=== PATIENT | male | born 1945 | race Caucasian/White ===

== ENCOUNTER 2019-02-15 14:47 | Inpatient (IN) | payer MEDICARE ==
[~2019-02-15] VITALS: Ht 175.3 cm; Wt 77.6 kg
[2019-02-15] MEDS ORDERED: VITAMIN D22000 UNIT PO (14:56)
[2019-02-15] MEDS ORDERED: LEVOTHYROXINE125 MCG ORAL (14:56)
[2019-02-15] MEDS ORDERED: AMLODIPINE BESY10 MG ORAL (14:56)
[2019-02-15 15:00] VITALS: BP 156/69
--- NOTE | 2019-02-15 15:00 | NUR ---
ED Nurse Note: Patient walked in to ER from home with sister due to BLE edema and urinary retention. pt aao x4 and ambulatory but impaired. skin clean and intact but pale. calm and cooperative. BLE pitting edema +4 noted. pt reported that he got a "water pill" prescription but he did not get a chance to go to pharmacy so he did not take it for a couple of month. 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
--- NOTE | 2019-02-15 15:00 | Emergency Room Report ---
History of Present Illness General Chief Complaint: Abnormal Labs Source: Patient, PMD Present Illness HPI Patient presents with difficulty urinating. He was sent by his private physician because he had a jump in his serum creatinine and also has edema. He feels fullness in his lower abdomen. Is uncertain how long this is progressed. He is able to produce small quantities of urine. The edema has been developing over several months. It gets better laying down, but he has trouble sleeping. He did not fill a prescription for a water pill. Apparently labs were performed yesterday and his creatinine bumped up to 4. His BNP was normal. Allergies: Coded Allergies: No Known Allergies (Unverified , 02/15/19) Patient History Past Medical History: see triage record Social History: Denies: smoking, alcohol use, drug use Social History Narrative lives with sister. 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 Reviewed Nursing Documentation: PMH: Agreed; PSxH: Agreed Review of Systems All Other Systems: negative except mentioned in HPI Physical Exam Vital Signs Date Time Temp Pulse Resp B/P (MAP) Pulse Ox O2 Delivery O2 Flow Rate FiO2 02/15/19 14:51 97.9 104 18 139/75 (96) 98 Room Air Sp02 EP Interpretation: reviewed, normal General Appearance: well appearing, no apparent distress, GCS 15 Head: normocephalic Eyes: bilateral eye normal inspection, bilateral eye PERRL ENT: moist mucus membranes Neck: supple Respiratory: lungs clear, normal breath sounds Cardiovascular #1: regular rate, rhythm, edema - 2-3+ pitting bilateral lower extremities Cardiovascular #2: 2+ radial (R) Gastrointestinal: non tender, soft, mass - Large bladder Genitourinary: no CVA tenderness Musculoskeletal: back normal, gait/station normal, normal range of motion Neurologic: alert, oriented x3, grossly normal Psychiatric: mood/affect normal Skin: normal inspection, warm/dry Medical Decision Making Diagnostic Impression: Primary Impression: Acute renal failure Qualified Codes: N17.9 - Acute kidney failure, unspecified Additional Impressions: Urinary retention Elevated lipase ER Course The patient presents with elevated creatinine edema and urinary retention. Differential includes benign prostatic hypertrophy, prostate cancer, medication interaction, right heart failure, urinary tract infection amongst others. The patient will be evaluated with labs, EKG chest x-ray abdomen film and renal ultrasound. Michelle catheter will be passed. Initial urine output = 1300 ml. EKG without injury. Chest x-ray unremarkable. Labs with acute renal failure. Lipase elevated. Fractional excretion of sodium less than 1%. Ultrasound with bilateral hydronephrosis. This was performed after Michelle was placed and the bladder was empty at that time. Patient pain improved. Admitted to the hospital for continued observation and evaluation of renal failure. Laboratory Tests Test 02/15/19 15:00 White Blood Count 11.0 K/UL (4.8-10.8) H Red Blood Count 3.93 M/UL (4.70-6.10) L Hemoglobin 10.2 G/DL (14.2-18.0) L Hematocrit 31.6 % (42.0-52.0) L Mean Corpuscular Volume 81 FL (80-99) Mean Corpuscular Hemoglobin 26.0 PG (27.0-31.0) L Mean Corpuscular Hemoglobin Concent 32.3 G/DL (32.0-36.0) Red Cell Distribution Width 11.5 % (11.6-14.8) L Platelet Count 421 K/UL (150-450) Mean Platelet Volume 6.0 FL (6.5-10.1) L Neutrophils (%) (Auto) 84.0 % (45.0-75.0) H Lymphocytes (%) (Auto) 8.3 % (20.0-45.0) L Monocytes (%) (Auto) 6.8 % (1.0-10.0) Eosinophils (%) (Auto) 0.0 % (0.0-3.0) Basophils (%) (Auto) 0.8 % (0.0-2.0) Prothrombin Time 10.7 SEC (9.30-11.50) Prothrombin Time INR 1.0 (0.9-1.1) PTT 31 SEC (23-33) Urine Color Pale yellow Urine Appearance Clear Urine pH 5 (4.5-8.0) Urine Specific [place] 1.010 (1.005-1.035) Urine Protein Negative (NEGATIVE) Urine Glucose (UA) Negative (NEGATIVE) Urine Ketones Negative (NEGATIVE) Urine Blood Negative (NEGATIVE) Urine Nitrite Negative (NEGATIVE) Urine Bilirubin Negative (NEGATIVE) Urine Urobilinogen Normal MG/DL (0.0-1.0) Urine Leukocyte Esterase Negative (NEGATIVE) Urine Random Sodium < 20 mmol/L (20-110) L Urine Creatinine 92.1 MG/DL (30.0-125.0) Sodium Level 133 MMOL/L (136-145) L Potassium Level 4.9 MMOL/L (3.5-5.1) Chloride Level 101 MMOL/L (98-107) Carbon Dioxide Level 19 MMOL/L (21-32) L Anion Gap 13 mmol/L (5-15) Blood Urea Nitrogen 81 mg/dL (7-18) H Creatinine 4.7 MG/DL (0.55-1.30) H Estimate Glomerular Filtration Rate mL/min (>60) Glucose Level 125 MG/DL (74-106) H Calcium Level 9.0 MG/DL (8.5-10.1) Total Bilirubin 0.3 MG/DL (0.2-1.0) Aspartate Amino Transferase (AST) 15 U/L (15-37) Alanine Aminotransferase (ALT) 20 U/L (12-78) Alkaline Phosphatase 76 U/L (46-116) Total Creatine Kinase 124 U/L (26-308) Troponin I 0.000 ng/mL (0.000-0.056) Total Protein 7.9 G/DL (6.4-8.2) Albumin 3.5 G/DL (3.4-5.0) Globulin 4.4 g/dL Albumin/Globulin Ratio 0.8 (1.0-2.7) L Lipase 1231 U/L (73-393) H EKG Diagnostic Results Rate: tachycardiac Rhythm: NSR ST Segments: no acute changes Rhythm Strip Diag. Results EP Interpretation: yes Rhythm: no PVC's, no ectopy, other - ST Chest X-Ray Diagnostic Results Chest X-Ray Diagnostic Results : Chest X-Ray Ordered: Yes # of Views/Limited/Complete: 1 View Indication: Other EP Interpretation: Yes Interpretation: no consolidation, no effusion, no pneumothorax Impression: No acute disease Electronically Signed by: Electronically signed by Adán Iraheta MD CT/MRI/US Diagnostic Results CT/MRI/US Diagnostic Results : Imaging Test Ordered: Renal ultrasound Impression Bilateral hydronephrosis Status: improved Disposition: ADMITTED INPATIENT Condition: Serious Adán Iraheta MD Feb 15, 2019 15:00
--- NOTE | 2019-02-15 15:13 | NUR ---
ED Nurse Note: Collected patient's own medication (# [id number]) and placed in locked box.
[2019-02-15] MEDS ORDERED: Lidocaine HCl 2% Jelly 6ml Tube TOPIC ONE (15:15)
[2019-02-15 15:26] LABS: APPEARANCE,URINE CLEAR; BILIRUBIN, URINE NEGATIVE (NEGATIVE); COLOR,URINE PALE YELLOW; GLUCOSE, URINE (UA) NEGATIVE (NEGATIVE); KETONES,URINE NEGATIVE (NEGATIVE); LEUKOCYTE ESTERASE ,URINE NEGATIVE (NEGATIVE); NITRITE,URINE NEGATIVE (NEGATIVE); PH,URINE 5 (4.5-8.0); PROTEIN,URINE NEGATIVE (NEGATIVE); UROBILINOGEN,URINE NORMAL MG/DL (0.0-1.0)
[2019-02-15 15:29] LABS: ANION GAP 13 mmol/L (5-15); BASOPHILS % (AUTO) 0.8 % (0.0-2.0); BLOOD UREA NITROGEN 81 mg/dL (7-18); CARBON DIOXIDE 19 MMOL/L (21-32); CHLORIDE 101 MMOL/L (98-107); CREATININE 4.7 MG/DL (0.55-1.30); HEMATOCRIT 31.6 % (42.0-52.0); HEMOGLOBIN 10.2 G/DL (14.2-18.0); LYMPHOCYTES % (AUTO) 8.3 % (20.0-45.0); MEAN CORPUSCULAR VOLUME 81 FL (80-99); MONOCYTES % (AUTO) 6.8 % (1.0-10.0); PLATELET COUNT 421 K/UL (150-450); POTASSIUM 4.9 MMOL/L (3.5-5.1); RED BLOOD COUNT 3.93 M/UL (4.70-6.10); RED CELL DISTRIBUTION WIDTH 11.5 % (11.6-14.8); SODIUM 133 MMOL/L (136-145)
--- NOTE | 2019-02-15 15:30 | NUR ---
ED Nurse Note: 2300cc of urine emptyed from F/C bag.
[2019-02-15 15:33] LABS: ALANINE AMINOTRANSFERASE 20 U/L (12-78); ALBUMIN 3.5 G/DL (3.4-5.0); ALBUMIN/GLOBULIN RATIO 0.8 (1.0-2.7); ALKALINE PHOSPHATASE 76 U/L (46-116); ASPARTATE AMINO TRANSFERASE 15 U/L (15-37); BILIRUBIN,TOTAL 0.3 MG/DL (0.2-1.0); CREATINE KINASE 124 U/L (26-308)
--- NOTE | 2019-02-15 15:37 | Diagnostic Imaging Report ---
Indication: Chest pain Comparison: None A single view chest radiograph was obtained. Findings: No definite infiltrate or pulmonary vascular congestion identified. The heart is enlarged. The aorta is mildly enlarged consistent with atherosclerotic vascular disease. The bones are osteopenic. Impression: No acute disease
--- NOTE | 2019-02-15 16:00 | NUR ---
ED Nurse Note: Patient's own medications given to the sister per pt and sister's request.
--- NOTE | 2019-02-15 16:08 | Diagnostic Imaging Report ---
Indication:Elevated Bun and Creatinine. Technique: Grayscale and duplex Doppler imaging of the kidneys performed. Comparison: None Findings: Moderate hydronephrosis demonstrated bilaterally. Right kidney length is 11.3 cm and left kidney length 11 cm. Michelle catheter noted in the bladder which is nondistended. IVC is patent. IMPRESSION: Moderate bilateral hydronephrosis. Michelle catheter in good position
--- NOTE | 2019-02-15 16:30 | NUR ---
ED Nurse Note: report given to TYE Lay.
--- NOTE | 2019-02-15 16:32 | NUR ---
ED Nurse Note: Pt left unit with 1 RN in stable condition.
--- NOTE | 2019-02-15 16:40 | NUR ---
NURSE NOTES: Patient came to unit by art in stable condition. Alert and oriented x4. No complain of pain or distress at this time. BLE pitting edema +4. IV dressing intact and dry. Belonging given to family member. Bed lowest position. Call light within reach. Will continue to monitor.
--- NOTE | 2019-02-15 19:30 | NUR ---
HAND-OFF: Report given to Khalif GAMBLE. Patient in stable condition. Addendum: 02/15/19 at 1950 by YOBANI JOHN RN NURSE NOTES: Noted light pink color of urine. No complain of pain or discomfort. Notified and no new order at this time. Will continue to monitor.
--- NOTE | 2019-02-15 19:45 | NUR ---
NURSE NOTES: Received report from TYE Lay and rounds made. Pt in bed, AOX4, denies any pain or discomfort, no distress noted. tolentino to gravity with pinkish color output, no clots noted. TYE Lay will notify Dr. Giron. IV patent and intact, IV fluid infusing as ordered. Bed in lowest position and locked, side railsup x 2, call light within reach. Will continue to monitor.
[2019-02-15 20:00] VITALS: BP 125/67
--- NOTE | 2019-02-16 03:30 | History and Physical Report ---
DATE OF ADMISSION: 02/15/2019 REASON FOR ADMISSION: Acute renal failure, urinary retention, and possible pancreatitis. HISTORY: This is a 73-year-old male, seen in my office yesterday with worsening lower extremity edema and noted worsening difficulty with urinary output. The patient is noted to have acute renal failure and was asked to come to the emergency room and now admitted. The patient had a Michelle catheter placed with significant amount of urinary retention at 1500 mL. The patient is also noted to have lower extremity edema. Denies any significant abdominal pain although his lipase is elevated. PAST MEDICAL HISTORY: Notable for hypertension, prior history of lower extremity edema, which has resolved, cognitive dysfunction, hypothyroidism, reflux disease, and hypertension. MEDICATIONS: Reviewed. ALLERGIES: Reviewed. SOCIAL HISTORY: The patient is a nonsmoker and nondrinker. Disabled. REVIEW OF SYSTEMS: All 10 points reviewed and otherwise negative. PHYSICAL EXAMINATION: GENERAL: A well-developed male, comfortable at present. VITAL SIGNS: Blood pressure 138/84, heart rate 93, respirations 18, saturations 98%, and temperature 97.9. HEENT: Negative. Extraocular movements are grossly intact. NECK: Supple. LUNGS: Fairly clear and symmetric. No rhonchi or wheezes. CARDIAC: S1 and S2. Regular rate and rhythm without murmurs, rubs, or gallops. ABDOMEN: Soft, nontender, and nondistended. EXTREMITIES: No cyanosis or clubbing. There is no erythema. NEUROLOGIC: Grossly nonfocal. LABORATORY DATA: BUN 81, creatinine 4.7, and blood sugar 125. White cell count 9, hemoglobin 10, and platelets of 421,000. INR within normal limits. Renal ultrasound with significant amount of necrosis. IMPRESSION: 1. Obstructive uropathy with acute renal failure. 2. Bilateral hydronephrosis. 3. Distended bladder. 4. Hypertension. 5. Vitamin D deficiency. RECOMMENDATIONS: 1. Supportive care. 2. Michelle catheter placement. 3. IV hydration. 4. Renal and evaluation. 5. Chronic catheter placement. 6. We will follow clinically and recommend GI for consideration for pancreatitis. 7. We will obtain a GI evaluation to assess further and the patient is presently on acute hospital stay. Bj Giron M.D. DR: AYSE JOB#: [id number] CC: BARBIE
[2019-02-16 05:58] VITALS: BP 128/73
--- NOTE | 2019-02-16 07:20 | NUR ---
HAND-OFF: Report given to TYE Lay. Pt in stable condition.
--- NOTE | 2019-02-16 07:30 | NUR ---
NURSE NOTES: Patient lying in bed awake. No complain of pain or distress at this time. Skin intact and dry. IV dressing intact and dry. Michelle catheter patent and draining well. Light pink color urine noted and MD aware. Bed lowest position. Call light within reach. Will continue to monitor.
[2019-02-16 07:37] LABS: BASOPHILS % (AUTO) 0.8 % (0.0-2.0); EOSINOPHILS % (AUTO) 0.6 % (0.0-3.0); HEMATOCRIT 29.7 % (42.0-52.0); HEMOGLOBIN 9.5 G/DL (14.2-18.0); LYMPHOCYTES % (AUTO) 15.9 % (20.0-45.0); MEAN CORPUSCULAR VOLUME 79 FL (80-99); MONOCYTES % (AUTO) 8.4 % (1.0-10.0); NEUTROPHILS % (AUTO) 74.3 % (45.0-75.0); PLATELET COUNT 376 K/UL (150-450); RED BLOOD COUNT 3.76 M/UL (4.70-6.10); RED CELL DISTRIBUTION WIDTH 12.3 % (11.6-14.8); WHITE BLOOD COUNT 7.1 K/UL (4.8-10.8)
[2019-02-16 07:54] LABS: ANION GAP 12 mmol/L (5-15); BLOOD UREA NITROGEN 60 mg/dL (7-18); CALCIUM 8.6 MG/DL (8.5-10.1); CARBON DIOXIDE 22 MMOL/L (21-32); CHLORIDE 112 MMOL/L (98-107); CREATININE 3.1 MG/DL (0.55-1.30); POTASSIUM 4.1 MMOL/L (3.5-5.1); SODIUM 146 MMOL/L (136-145)
[2019-02-16 08:00] VITALS: BP 133/75
--- NOTE | 2019-02-16 08:05 | General Progress Note ---
Assessment/Plan Assessment/Plan: IMPRESSION: 1. Obstructive uropathy with acute renal failure. 2. Bilateral hydronephrosis. 3. Distended bladder. 4. Hypertension. 5. Vitamin D deficiency. PLAN care noted and reviewed tolentino renal hydrate monitor d/w patient and update given impression, plan, and exam edited and reviewed in detail care discussed with RN Subjective Allergies: Coded Allergies: No Known Allergies (Unverified , 02/15/19) Subjective care noted renal function better renal/uro called Objective Last 24 Hour Vital Signs Date Time Temp Pulse Resp B/P (MAP) Pulse Ox O2 Delivery O2 Flow Rate FiO2 02/16/19 05:58 97.7 88 18 128/73 (91) 98 02/15/19 21:00 Room Air 02/15/19 20:00 98.3 98 17 125/67 (86) 97 02/15/19 16:42 Room Air 02/15/19 16:30 97.9 93 18 164/72 98 Room Air 02/15/19 15:00 97.9 96 18 156/69 98 Room Air 02/15/19 15:00 95 18 Room Air 02/15/19 14:51 97.9 104 18 139/75 (96) 98 Room Air Intake and Output 02/15/19 02/16/19 19:00 07:00 Intake Total 0 ml 1300 ml Output Total 1300 ml 5800 ml Balance -1300 ml -4500 ml Intake Oral 0 ml 200 ml IV Total 1100 ml Output Urine Total 1300 ml 5800 ml Laboratory Tests 02/15/19 15:00: White Blood Count 11.0H, Red Blood Count 3.93L, Hemoglobin 10.2L, Hematocrit 31.6L, Mean Corpuscular Volume 81, Mean Corpuscular Hemoglobin 26.0L, Mean Corpuscular Hemoglobin Concent 32.3, Red Cell Distribution Width 11.5L, Platelet Count 421, Mean Platelet Volume 6.0L, Neutrophils (%) (Auto) 84.0H, Lymphocytes (%) (Auto) 8.3L, Monocytes (%) (Auto) 6.8, Eosinophils (%) (Auto) 0.0, Basophils (%) (Auto) 0.8, Prothrombin Time 10.7, Prothromb Time International Ratio 1.0, Activated Partial Thromboplast Time 31, Urine Color Pale yellow, Urine Appearance Clear, Urine pH 5, Urine Specific [place] 1.010, Urine Protein Negative, Urine Glucose (UA) Negative, Urine Ketones Negative, Urine Blood Negative, Urine Nitrite Negative, Urine Bilirubin Negative, Urine Urobilinogen Normal, Urine Leukocyte Esterase Negative, Urine Random Sodium < 20L, Urine Creatinine 92.1, Sodium Level 133L, Potassium Level 4.9, Chloride Level 101, Carbon Dioxide Level 19L, Anion Gap 13, Blood Urea Nitrogen 81H, Creatinine 4.7H, Estimat Glomerular Filtration Rate , Glucose Level 125H, Calcium Level 9.0, Total Bilirubin 0.3, Aspartate Amino Transf (AST/SGOT) 15, Alanine Aminotransferase (ALT/SGPT) 20, Alkaline Phosphatase 76, Total Creatine Kinase 124, Troponin I 0.000, Total Protein 7.9, Albumin 3.5, Globulin 4.4, Albumin/Globulin Ratio 0.8L, Lipase 1231H 02/16/19 06:08: White Blood Count 7.1, Red Blood Count 3.76L, Hemoglobin 9.5L, Hematocrit 29.7L , Mean Corpuscular Volume 79L, Mean Corpuscular Hemoglobin 25.3L, Mean Corpuscular Hemoglobin Concent 32.0, Red Cell Distribution Width 12.3, Platelet Count 376, Mean Platelet Volume 6.0L, Neutrophils (%) (Auto) 74.3, Lymphocytes ( %) (Auto) 15.9L, Monocytes (%) (Auto) 8.4, Eosinophils (%) (Auto) 0.6, Basophils (%) (Auto) 0.8, Sodium Level 146#H, Potassium Level 4.1, Chloride Level 112H, Carbon Dioxide Level 22, Anion Gap 12, Blood Urea Nitrogen 60H, Creatinine 3.1H, Estimat Glomerular Filtration Rate , Glucose Level 96, Calcium Level 8.6 Height (Feet): 5 Height (Inches): 9.00 Weight (Pounds): 171 Objective GENERAL: A well-developed male, comfortable at present. HEENT: Negative. Extraocular movements are grossly intact. NECK: Supple. LUNGS: Fairly clear and symmetric. No rhonchi or wheezes. CARDIAC: S1 and S2. Regular rate and rhythm without murmurs, rubs, or gallops. ABDOMEN: Soft, nontender, and nondistended. EXTREMITIES: No cyanosis or clubbing. There is no erythema. NEUROLOGIC: Grossly nonfocal. tolentino in place Bj Giron MD Feb 16, 2019 08:05
--- NOTE | 2019-02-16 08:17 | NUR ---
NURSE NOTES: Spoke to regarding morning lab result and new order received. Order read back and carried out.
[2019-02-16 11:51] VITALS: BP 115/67
--- NOTE | 2019-02-16 11:59 | General Progress Note ---
Assessment/Plan Assessment/Plan: Assessment - asymptomatic lipase elevation, doubt pancreatitis - anemia - Edema - renal failure - loss of taste sensation Recommendation - po as tolerated - check CT of pancreas - follow lipase - check stool OB - check B12 level - outpatient EGD/Colon Thank you Hilaria Sauer MD Subjective Allergies: Coded Allergies: No Known Allergies (Unverified , 02/15/19) Objective Last 24 Hour Vital Signs Date Time Temp Pulse Resp B/P (MAP) Pulse Ox O2 Delivery O2 Flow Rate FiO2 02/16/19 11:51 98.0 95 20 115/67 (83) 97 02/16/19 09:00 Room Air 02/16/19 08:44 102 133/75 02/16/19 08:00 97.5 102 20 133/75 (94) 95 02/16/19 05:58 97.7 88 18 128/73 (91) 98 02/15/19 21:00 Room Air 02/15/19 20:00 98.3 98 17 125/67 (86) 97 02/15/19 16:42 Room Air 02/15/19 16:30 97.9 93 18 164/72 98 Room Air 02/15/19 15:00 97.9 96 18 156/69 98 Room Air 02/15/19 15:00 95 18 Room Air 02/15/19 14:51 97.9 104 18 139/75 (96) 98 Room Air Intake and Output 02/15/19 02/16/19 18:59 06:59 Intake Total 0 ml 1300 ml Output Total 1300 ml 5800 ml Balance -1300 ml -4500 ml Intake Oral 0 ml 200 ml IV Total 1100 ml Output Urine Total 1300 ml 5800 ml Laboratory Tests 02/15/19 15:00: White Blood Count 11.0H, Red Blood Count 3.93L, Hemoglobin 10.2L, Hematocrit 31.6L, Mean Corpuscular Volume 81, Mean Corpuscular Hemoglobin 26.0L, Mean Corpuscular Hemoglobin Concent 32.3, Red Cell Distribution Width 11.5L, Platelet Count 421, Mean Platelet Volume 6.0L, Neutrophils (%) (Auto) 84.0H, Lymphocytes (%) (Auto) 8.3L, Monocytes (%) (Auto) 6.8, Eosinophils (%) (Auto) 0.0, Basophils (%) (Auto) 0.8, Prothrombin Time 10.7, Prothromb Time International Ratio 1.0, Activated Partial Thromboplast Time 31, Urine Color Pale yellow, Urine Appearance Clear, Urine pH 5, Urine Specific [place] 1.010, Urine Protein Negative, Urine Glucose (UA) Negative, Urine Ketones Negative, Urine Blood Negative, Urine Nitrite Negative, Urine Bilirubin Negative, Urine Urobilinogen Normal, Urine Leukocyte Esterase Negative, Urine Random Sodium < 20L, Urine Creatinine 92.1, Sodium Level 133L, Potassium Level 4.9, Chloride Level 101, Carbon Dioxide Level 19L, Anion Gap 13, Blood Urea Nitrogen 81H, Creatinine 4.7H, Estimat Glomerular Filtration Rate , Glucose Level 125H, Calcium Level 9.0, Total Bilirubin 0.3, Aspartate Amino Transf (AST/SGOT) 15, Alanine Aminotransferase (ALT/SGPT) 20, Alkaline Phosphatase 76, Total Creatine Kinase 124, Troponin I 0.000, Total Protein 7.9, Albumin 3.5, Globulin 4.4, Albumin/Globulin Ratio 0.8L, Lipase 1231H 02/16/19 06:08: White Blood Count 7.1, Red Blood Count 3.76L, Hemoglobin 9.5L, Hematocrit 29.7L , Mean Corpuscular Volume 79L, Mean Corpuscular Hemoglobin 25.3L, Mean Corpuscular Hemoglobin Concent 32.0, Red Cell Distribution Width 12.3, Platelet Count 376, Mean Platelet Volume 6.0L, Neutrophils (%) (Auto) 74.3, Lymphocytes ( %) (Auto) 15.9L, Monocytes (%) (Auto) 8.4, Eosinophils (%) (Auto) 0.6, Basophils (%) (Auto) 0.8, Sodium Level 146#H, Potassium Level 4.1, Chloride Level 112H, Carbon Dioxide Level 22, Anion Gap 12, Blood Urea Nitrogen 60H, Creatinine 3.1H, Estimat Glomerular Filtration Rate , Glucose Level 96, Calcium Level 8.6 Height (Feet): 5 Height (Inches): 9.00 Weight (Pounds): 171 Hilaria Sauer MD Feb 16, 2019 11:59
--- NOTE | 2019-02-16 13:12 | NUR ---
CASE MANAGEMENT: INITIAL REVIEW 73 YO M PRESENTED FROM MD OFFICE CC: ABNORMAL KIDNEY FUNCTION AND URINARY RETENTION. PMHx: HTN. HYPOTHYROIDISM. GERD. SI:ARF. T 97.9 HR 104 R 18 B/P 139/75 SATS 98% ON RA WBC 11 NA 133 CO 19 BUN 81 CR 4.7 GLU 125 LIPASE 1231 IS: US RENAL (IMPRESSION: Moderate bilateral hydronephrosis) PATIENT ADMITTED TO MED/SURG 02/15/2019 @ 8485 DCP: PATIENT TO BE DISCHARGED TO HOME ONCE MEDICALLY CLEARED. PLAN OF CARE: GI CONSULT CT ABD Addendum: 02/16/19 at 1322 by Elyse Andino CM INTERQUAL MET
--- NOTE | 2019-02-16 13:25 | NUR ---
NURSE NOTES: Patient off unit for procedure in stable condition.
--- NOTE | 2019-02-16 14:27 | Diagnostic Imaging Report ---
Indication: Abdominal pain. Bilateral hydronephrosis Technique: Continuous helical transaxial imaging of the abdomen and pelvis was obtained from the lung bases to the pubic symphysis. No intravenous contrast was administered. Coronal 2-D reformats were also obtained. Automatic Exposure Control was utilized. Total Dose length Product (DLP): 524.[address] Dose Index Volume (CTDIvol): 11.02 mGy Comparison: none Findings: Note is made of the recent kidney ultrasound which showed bilateral hydronephrosis. This is confirmed on the current examination which shows moderate to severe bilateral hydronephrosis. There is a in addition thickening of the uroepithelium particularly within the left kidney involving the left renal pelvis and ureter. There is a moderate degree of perinephric stranding on the left side. The proximal part of the ureter is seen but it is difficult to follow the mid and distal aspect of the ureter. At the UVJ there is no stone. However as above the pelvic brim there is a small calcification in the expected location and course of the left ureter. The calcification is about 3 to 4 mm in size and could represent a small obstructing stone although it is more likely to represent arterial calcium within a branch of the left iliac artery. Furthermore this does not account for hydronephrosis seen on the right. There is no stone in the distribution of the right ureter. There is marked thickening of the wall the urinary bladder which could account for the hydronephrosis on both sides. There is a bladder catheter noted which appears to be in good position. Bowel gas pattern is nonobstructive. The gallbladder is unremarkable. Aortoiliac calcifications are present consistent with atherosclerotic disease. Suggestion of a subtle small nodes in the retroperitoneum. Bowel gas pattern appears nonobstructive. There is diffuse generalized subcutaneous edema within the abdominal wall. There is narrowing of intervertebral discs and accompanying endplate osteophyte formation. Hypertrophied facet joints also demonstrated.. The lung bases are clear IMPRESSION: Moderate to severe bilateral hydronephrosis with thickened uroepithelium and periureteral and perinephric stranding, findings suggestive of chronic inflammation. The findings are probably associated with thickening of the wall the urinary bladder which is moderate degree. Please correlate for UTI chronic infection. 3 mm calcification within the left lower quadrant abdomen. This is in the approximate location of the mid left ureter although the calcium is favored to represent arterial calcification rather than a ureteral stone. Repeat CT study with IV contrast material may be of benefit to further elucidate. Michelle catheter in good position Degenerative changes of the spine Atherosclerotic vascular disease The CT scanner at [facility] is accredited by the [employer] and the scans are performed using dose optimization techniques as appropriate to a performed exam including Automatic Exposure control.
--- NOTE | 2019-02-16 14:40 | NUR ---
NURSE NOTES: Collected stool specimen and sent to lab.
[2019-02-16 16:10] VITALS: BP 101/62
--- NOTE | 2019-02-16 16:15 | Consultation ---
DATE OF CONSULTATION: 02/16/2019 CHIEF COMPLAINT: I was asked to see this patient by Dr. Bj Giron for evaluation of elevated lipase. HISTORY OF PRESENT ILLNESS: The patient is a pleasant 73-year-old man who was seen in the office with worsening lower extremity edema and was sent to the hospital with acute renal failure. He has been admitted and treated with a Michelle catheter which drained 1500 mL. The patient also was noted to have some lower extremity edema which is being treated. Admission laboratory parameters also showed elevated lipase which prompted this consultation. The patient denies any previous history of pancreatitis or any alcohol use. He has never had any pancreatic stones or gallstones. He denies any abdominal pain, nausea, vomiting. He also has not had any colonoscopy in the past. PAST MEDICAL HISTORY: History of hypertension, lower extremity edema, renal failure, cognitive dysfunction, hypothyroidism, gastroesophageal reflux disease, hypertension. MEDICATIONS: Noted. ALLERGIES: None. FAMILY HISTORY: Noncontributory and negative for pancreatic disorder. SOCIAL HISTORY: The patient does not smoke or drink alcohol. He is disabled. REVIEW OF SYSTEMS: Otherwise negative. PHYSICAL EXAMINATION: GENERAL: A pleasant white man, seen in his room. HEENT: Normocephalic and atraumatic. Sclerae anicteric. Oropharynx clear. NECK: Supple. CHEST: Clear to auscultation. CARDIOVASCULAR: Regular rate. ABDOMEN: Soft and nontender with good bowel sounds. There was no masses. EXTREMITIES: Revealed 2 to 3+ edema bilaterally. LABORATORY DATA: Noted. ASSESSMENT: This patient presents with asymptomatic incidental finding of elevated lipase of unclear etiology. The patient has no abdominal symptoms but he can undergo a screening CT scan to evaluate any significant pathology. If problem persist, then ultrasound or MRCP can be done to evaluate bile ducts. In the meantime, his stool should also be checked for occult blood since he is mildly anemic. I have advised him to undergo a colonoscopy and endoscopy as an outpatient. He also complains of some loss of sensation of taste and therefore I will check his B12 levels. The patient will be followed closely and further recommendations will be given. RECOMMENDATIONS: Per above discussion and per orders in the chart. Thank you for asking me to participate in care of this patient. Hilaria Sauer M.D. DR: Rosio JOB#: [id number] CC:
--- NOTE | 2019-02-16 19:30 | NUR ---
NURSE NOTES: Received report from TYE Lay and rounds done. Received pt in bed, AOX4, denies any pain, no distress noted. IV R UA patent and intact. IV fluid infusing as ordered. Michelle to gravity with yellow color urine output. Bed in lowest in position and locked, side rails up x 2, call light within reach. Will continue to monitor.
--- NOTE | 2019-02-16 19:30 | NUR ---
HAND-OFF: Report given to Khalif GAMBLE. Patient in stable condition.
[2019-02-16 20:00] VITALS: BP 102/57
[2019-02-17] VITALS: BP 126/73
[2019-02-17 04:00] VITALS: BP 109/73
[2019-02-17 06:32] LABS: BASOPHILS % (AUTO) 1.2 % (0.0-2.0); EOSINOPHILS % (AUTO) 1.1 % (0.0-3.0); HEMATOCRIT 30.9 % (42.0-52.0); HEMOGLOBIN 9.8 G/DL (14.2-18.0); LYMPHOCYTES % (AUTO) 19.8 % (20.0-45.0); MEAN CORPUSCULAR VOLUME 80 FL (80-99); MONOCYTES % (AUTO) 7.9 % (1.0-10.0); NEUTROPHILS % (AUTO) 69.9 % (45.0-75.0); PLATELET COUNT 372 K/UL (150-450); RED BLOOD COUNT 3.87 M/UL (4.70-6.10); RED CELL DISTRIBUTION WIDTH 12.4 % (11.6-14.8); WHITE BLOOD COUNT 7.6 K/UL (4.8-10.8)
[2019-02-17 06:55] LABS: % IRON SATURATION 32 % (15-50); IRON 62 ug/dL (50-175); TOTAL IRON BINDING CAPACITY 196 ug/dL (250-450)
[2019-02-17 07:23] LABS: ANION GAP 12 mmol/L (5-15); BLOOD UREA NITROGEN 42 mg/dL (7-18); CALCIUM 8.5 MG/DL (8.5-10.1); CARBON DIOXIDE 23 MMOL/L (21-32); CHLORIDE 112 MMOL/L (98-107); FERRITIN 115 NG/ML (8-388); POTASSIUM 3.8 MMOL/L (3.5-5.1); SODIUM 147 MMOL/L (136-145)
--- NOTE | 2019-02-17 07:36 | NUR ---
NURSE NOTES: Received report from Khalif GAMBLE. Patient is awake alert and oriented x4, no acute distress noted. Sitting up in bed eating breakfast. SCD's not on due to +4 edema in bilateral legs. IVF running per order, IV intact and asymptomatic. Patient reporting no pain at this time. Michelle to gravity drainage with clear, yellow urine noted. Fall precautions maintained, side rails upx3, bed low and locked, call light in reach. Will continue to monitor.
--- NOTE | 2019-02-17 07:40 | NUR ---
HAND-OFF: Report given to TYE Feliciano. Pt in stable condition.
[2019-02-17 08:00] VITALS: BP 110/68
[2019-02-17 12:00] VITALS: BP 138/78
[2019-02-17 16:00] VITALS: BP 111/71
--- NOTE | 2019-02-17 16:02 | Cardiology Report ---
APPROVED REPORT EKG Measurement Heart [id number] Sinus tachycardia Nonspecific ST abnormality Abnormal ECG
--- NOTE | 2019-02-17 16:19 | General Progress Note ---
Assessment/Plan Assessment/Plan: Assessment - asymptomatic lipase elevation, doubt pancreatitis - anemia, OB (-) x 1 - Edema - b/l hydro per CT - renal failure - improved - loss of taste sensation Recommendation - po as tolerated - follow lipase - check B12 level - normal - outpatient EGD/Colon Subjective Allergies: Coded Allergies: No Known Allergies (Unverified , 02/15/19) Subjective above noted had CT scan --> b/l hydronephrosis, ? urolithiasis tolerating po Objective Last 24 Hour Vital Signs Date Time Temp Pulse Resp B/P (MAP) Pulse Ox O2 Delivery O2 Flow Rate FiO2 02/17/19 12:00 97.8 88 20 138/78 (98) 99 02/17/19 09:00 Room Air 02/17/19 08:31 87 110/68 02/17/19 08:00 97.9 87 18 110/68 (82) 97 02/17/19 04:00 97.9 89 16 109/73 (85) 98 02/17/19 00:00 98.1 91 16 126/73 (90) 98 02/16/19 21:00 Room Air 02/16/19 20:00 99.2 97 16 102/57 (72) 95 Intake and Output 02/16/19 02/17/19 18:59 06:59 Intake Total 500 ml 1320 ml Output Total 3500 ml 3500 ml Balance -3000 ml -2180 ml Intake Oral 500 ml 120 ml IV Total 1200 ml Output Urine Total 3500 ml 3500 ml Laboratory Tests 02/17/19 05:25: White Blood Count 7.6, Red Blood Count 3.87L, Hemoglobin 9.8L, Hematocrit 30.9L , Mean Corpuscular Volume 80, Mean Corpuscular Hemoglobin 25.3L, Mean Corpuscular Hemoglobin Concent 31.7L, Red Cell Distribution Width 12.4, Platelet Count 372, Mean Platelet Volume 6.0L, Neutrophils (%) (Auto) 69.9, Lymphocytes (%) (Auto) 19.8L, Monocytes (%) (Auto) 7.9, Eosinophils (%) (Auto) 1.1, Basophils (%) (Auto) 1.2, Sodium Level 147H, Potassium Level 3.8, Chloride Level 112H, Carbon Dioxide Level 23, Anion Gap 12, Blood Urea Nitrogen 42H, Creatinine 2.0H, Estimat Glomerular Filtration Rate , Glucose Level 101, Calcium Level 8.5, Iron Level 62, Total Iron Binding Capacity 196L, Percent Iron Saturation 32, Unsaturated Iron Binding 134, Ferritin 115, Vitamin B12 Level 472 Height (Feet): 5 Height (Inches): 9.00 Weight (Pounds): 171 Objective WDWN WM NCAT supple CTA RR abd soft ND NT no edema Hilaria Sauer MD Feb 17, 2019 16:19
--- NOTE | 2019-02-17 17:10 | General Progress Note ---
Assessment/Plan Problem List: (1) Elevated lipase ICD Codes: R74.8 - Abnormal levels of other serum enzymes SNOMED: 012227755 (2) Urinary retention ICD Codes: R33.9 - Retention of urine, unspecified SNOMED: 420286590 (3) Acute renal failure ICD Codes: N17.9 - Acute kidney failure, unspecified SNOMED: 52855575 Status: stable, progressing Assessment/Plan: ivf monitor labs and renal fxn gi noted, Subjective ROS Limited/Unobtainable: No Constitutional: Reports: malaise, weakness HEENT: Reports: no symptoms Cardiovascular: Reports: no symptoms Respiratory: Reports: no symptoms Gastrointestinal/Abdominal: Reports: no symptoms Genitourinary: Reports: no symptoms Neurologic/Psychiatric: Reports: no symptoms Endocrine: Reports: no symptoms Hematologic/Lymphatic: Reports: no symptoms Allergies: Coded Allergies: No Known Allergies (Unverified , 02/15/19) All Systems: reviewed and negative except above Subjective no complaints. states he feels better. Objective Last 24 Hour Vital Signs Date Time Temp Pulse Resp B/P (MAP) Pulse Ox O2 Delivery O2 Flow Rate FiO2 02/17/19 16:00 97.9 89 18 111/71 (84) 97 02/17/19 12:00 97.8 88 20 138/78 (98) 99 02/17/19 09:00 Room Air 02/17/19 08:31 87 110/68 02/17/19 08:00 97.9 87 18 110/68 (82) 97 02/17/19 04:00 97.9 89 16 109/73 (85) 98 02/17/19 00:00 98.1 91 16 126/73 (90) 98 02/16/19 21:00 Room Air 02/16/19 20:00 99.2 97 16 102/57 (72) 95 Intake and Output 02/16/19 02/17/19 18:59 06:59 Intake Total 500 ml 1320 ml Output Total 3500 ml 3500 ml Balance -3000 ml -2180 ml Intake Oral 500 ml 120 ml IV Total 1200 ml Output Urine Total 3500 ml 3500 ml Laboratory Tests 02/17/19 05:25: White Blood Count 7.6, Red Blood Count 3.87L, Hemoglobin 9.8L, Hematocrit 30.9L , Mean Corpuscular Volume 80, Mean Corpuscular Hemoglobin 25.3L, Mean Corpuscular Hemoglobin Concent 31.7L, Red Cell Distribution Width 12.4, Platelet Count 372, Mean Platelet Volume 6.0L, Neutrophils (%) (Auto) 69.9, Lymphocytes (%) (Auto) 19.8L, Monocytes (%) (Auto) 7.9, Eosinophils (%) (Auto) 1.1, Basophils (%) (Auto) 1.2, Sodium Level 147H, Potassium Level 3.8, Chloride Level 112H, Carbon Dioxide Level 23, Anion Gap 12, Blood Urea Nitrogen 42H, Creatinine 2.0H, Estimat Glomerular Filtration Rate , Glucose Level 101, Calcium Level 8.5, Iron Level 62, Total Iron Binding Capacity 196L, Percent Iron Saturation 32, Unsaturated Iron Binding 134, Ferritin 115, Vitamin B12 Level 472 Height (Feet): 5 Height (Inches): 9.00 Weight (Pounds): 171 General Appearance: WD/WN, alert Neck: supple Cardiovascular: normal rate Respiratory/Chest: chest wall non-tender, lungs clear, normal breath sounds Abdomen: normal bowel sounds, non tender, soft, no mass 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
--- NOTE | 2019-02-17 19:54 | NUR ---
HAND-OFF: Report given to Linnea GAMBLE. Patient is in stable condition.
[2019-02-17 20:00] VITALS: BP 124/74
--- NOTE | 2019-02-17 20:00 | NUR ---
NURSE NOTES: Received a report from TYE Feliciano. Done rounds. Will continue to monitor.
--- NOTE | 2019-02-17 21:00 | NUR ---
NURSE NOTES: Pt is awake and alert. Breathing is even and non labored. No acute distress noted. No pain noted. Michelle catheter inserted state patent with yellowish urine without hematuria or sediments. LE pitting edema noted and keep elevated with a pillow. Pt refuses to put SCDs d/t noises. Explain benefits to put SCDs and reapply them on. Leave call light within reach. Bed is locked and lowest position. Will continue to monitor.
[2019-02-17] MEDS: Tamsulosin 0.4mg cap ORAL SCH (21:18)
[2019-02-18] VITALS: BP 117/67
--- NOTE | 2019-02-18 01:15 | Consultation ---
DATE OF CONSULTATION: 02/17/2019 UROLOGY CONSULTATION ATTENDING/CONSULTING PHYSICIAN: Bj Giron M.D. CHIEF COMPLAINT/HISTORY OF PRESENT ILLNESS: I was asked by Dr. Giron to evaluate this very pleasant 73-year-old gentleman regarding a history of acute urinary retention with bilateral hydroureteronephrosis and obstructive uropathy secondary to same. Briefly, the patient was seen in Dr. Giron's office yesterday with lower extremity edema and worsening difficulty urinating. He was noted to have evidence of acute renal failure and was admitted to the hospital. A Michelle catheter was placed and over 1-1/2 liters of urine was drained from his bladder. Given the above, the patient was admitted for further management and care. The patient reports a baseline history of nocturia 3 to 4 times a night with a weakened force of stream. He has some cognitive decline, but is able to answer some simple questions. He does not appear to have seen a urologist ever in the past. PAST MEDICAL HISTORY: 1. Hypertension. 2. Cognitive dysfunction/dementia. 3. Lower extremity edema. 4. Hypothyroidism. 5. Gastroesophageal reflux disease. 6. Urinary retention during this hospitalization. MEDICATIONS: Please see chart for current medications and administration details. Briefly, the patient is not receiving any prostate medicine. ALLERGIES: No known drug allergies. SOCIAL HISTORY: Unremarkable for tobacco, alcohol, or drug use. FAMILY HISTORY: Unavailable/noncontributory. REVIEW OF SYSTEMS: A 14-system review of systems was somewhat limited by the patient's mental status, but apparently unremarkable outside what is described above. PHYSICAL EXAMINATION: GENERAL: The patient is an elderly gentleman, awake, alert, and in no obvious distress. HEENT: NC/AT. Neck is supple. Oropharynx clear. CHEST: Within normal limits. ABDOMEN: Soft, nontender, and nondistended. EXTREMITIES: Warm and well perfused. No cyanosis, clubbing, or edema. NEUROLOGIC: Notable for some cognitive decline, but is otherwise grossly nonfocal. GENITOURINARY: Reveals a normal male phallus with a Michelle catheter in place. There is clear yellow urine output. There are bilateral descended testes and cord structures with no masses or tenderness to palpation. LABORATORY DATA: White blood cell count 7.6, hematocrit 30.9, and platelets 372,000. PT 10.7, INR 1.0, and PTT 31. Sodium 147, potassium 3.8, chloride 112, bicarb 23, BUN 42, and creatinine 2.0 down from 4.7 on admission. Glucose 101. LFTs within normal limits. Troponin negative. Urinalysis, specific gravity 1.010, pH 5.0, dip test negative for all findings. DIAGNOSTIC IMAGING: CT scan of the abdomen and pelvis is [id number] bilateral hydroureteronephrosis with thickened urothelium and periureteral and perinephric stranding suggestive of chronic inflammation. There is thickening of the bladder wall, which is moderate. There is a 3 mm calcification in the left lower quadrant of the abdomen, which is more likely arterial calcification rather than a ureteral stone. Michelle catheter is in good position. Renal ultrasound, moderate bilateral hydronephrosis. Michelle catheter in good position. ASSESSMENT AND PLAN: In summary, the patient is a 73-year-old gentleman with a history of acute renal failure in the setting of urinary difficulty. The picture is consistent with obstructive uropathy. Workup here revealed massive urinary retention with 0.5 liters drained from the patient's bladder after catheter placement. Diagnostic imaging reveals evidence of urinary retention and bilateral hydroureteronephrosis secondary to same. After catheter drainage, the patient's creatinine has improved from 4.7 down to 2. Physical exam reveals a Michelle in place with clear yellow urine output. This patient appears to have evidence of urinary retention with obstructive uropathy secondary to same. Whether this is secondary to his prostate or neurogenic bladder is uncertain at this point in time. The catheter should remain in place and I will start the patient on some prostate medications in an effort to address that possibility. We will start him on Flomax 0.8 mg at bedtime and Proscar 5 mg a day. Once the patient's creatinine returned to normal, we can try taking out his catheter to see if he can urinate without it and see if he is improved on the prostate medications. Thank you for allowing me to participate in the care of this nice gentleman. Please do not hesitate to contact me for any questions that you may further have regarding his care. I will see him with you as needed. Tanner Del Cid M.D. DR: ANNY JOB#: [id number] CC:
[2019-02-18 04:00] VITALS: BP 110/69
--- NOTE | 2019-02-18 07:25 | NUR ---
HAND-OFF: Report given to Alireza Conn RN.
--- NOTE | 2019-02-18 07:30 | NUR ---
NURSE NOTES: Patient lying in bed awake. No complain of pain or distress at this time. Skin intact and dry. IV dressing intact and dry. Michelle catheter patent and draining well. Bed lowest position. Call light within reach. Will continue to monitor.
[2019-02-18 08:00] VITALS: BP 101/63
[2019-02-18 12:00] VITALS: BP 119/64
[2019-02-18] MEDS ORDERED: 1/2 NS 1000ml IV ONE (13:17)
--- NOTE | 2019-02-18 15:35 | General Progress Note ---
Assessment/Plan Problem List: (1) Elevated lipase ICD Codes: R74.8 - Abnormal levels of other serum enzymes SNOMED: 938147767 (2) Urinary retention ICD Codes: R33.9 - Retention of urine, unspecified SNOMED: 380595324 (3) Acute renal failure ICD Codes: N17.9 - Acute kidney failure, unspecified SNOMED: 72864678 Qualifiers: Qualified Codes: N17.9 - Acute kidney failure, unspecified Status: stable, progressing Assessment/Plan: ivf monitor labs and renal fxn gi noted, bowel regime Subjective ROS Limited/Unobtainable: No Constitutional: Reports: no symptoms HEENT: Reports: no symptoms Cardiovascular: Reports: no symptoms Respiratory: Reports: no symptoms Gastrointestinal/Abdominal: Reports: constipated Genitourinary: Reports: no symptoms Neurologic/Psychiatric: Reports: no symptoms Endocrine: Reports: no symptoms Hematologic/Lymphatic: Reports: no symptoms Allergies: Coded Allergies: No Known Allergies (Unverified , 02/15/19) All Systems: reviewed and negative except above Subjective c/o constipation. on ivf. labs not done yet. Objective Last 24 Hour Vital Signs Date Time Temp Pulse Resp B/P (MAP) Pulse Ox O2 Delivery O2 Flow Rate FiO2 02/18/19 12:00 97.8 85 17 119/64 (82) 97 02/18/19 09:00 Room Air 02/18/19 08:54 87 101/63 02/18/19 08:00 98.1 87 16 101/63 (76) 97 02/18/19 04:00 97.7 83 18 110/69 (83) 99 02/18/19 00:00 97.6 81 18 117/67 (84) 97 02/17/19 21:00 Room Air 02/17/19 20:00 98.6 78 18 124/74 (91) 96 02/17/19 16:00 97.9 89 18 111/71 (84) 97 Intake and Output 02/17/19 02/18/19 19:00 07:00 Intake Total 1400 ml 1850 ml Output Total 1200 ml 4050 ml Balance 200 ml -2200 ml Intake Oral 300 ml 750 ml IV Total 1100 ml 1100 ml Output Urine Total 1200 ml 4050 ml Laboratory Tests 02/18/19 04:50: Lipase 808H Height (Feet): 5 Height (Inches): 9.00 Weight (Pounds): 171 Objective General Appearance: WD/WN, alert Neck: supple Cardiovascular: normal rate Respiratory/Chest: chest wall non-tender, lungs clear, normal breath sounds Abdomen: normal bowel sounds, non tender, soft, no mass 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
[2019-02-18] MEDS ORDERED: Miralax 17gm pkt ORAL PRN (15:45)
[2019-02-18 16:00] VITALS: BP 99/64
[2019-02-18] MEDS: Docusate 250mg cap ORAL SCH (16:05)
[2019-02-18 18:17] LABS: ALANINE AMINOTRANSFERASE 19 U/L (12-78); ALBUMIN 2.7 G/DL (3.4-5.0); ALBUMIN/GLOBULIN RATIO 0.9 (1.0-2.7); ALKALINE PHOSPHATASE 59 U/L (46-116); ANION GAP 10 mmol/L (5-15); ASPARTATE AMINO TRANSFERASE 16 U/L (15-37); BILIRUBIN,TOTAL 0.1 MG/DL (0.2-1.0); BLOOD UREA NITROGEN 32 mg/dL (7-18); CALCIUM 7.6 MG/DL (8.5-10.1); CARBON DIOXIDE 24 MMOL/L (21-32); CHLORIDE 105 MMOL/L (98-107); CREATININE 1.9 MG/DL (0.55-1.30); POTASSIUM 4.2 MMOL/L (3.5-5.1); SODIUM 139 MMOL/L (136-145)
--- NOTE | 2019-02-18 19:30 | NUR ---
HAND-OFF: Report given to Brittany GAMBLE. Patient in stable condition.
--- NOTE | 2019-02-18 19:31 | NUR ---
NURSE NOTES: Received report from TYE Lay. Patient alert, sitting in bed, watching TV. No distress noted. Bed in low position, locked, side rails up x2, call light within reach.Will continue to monitor.
[2019-02-18 20:00] VITALS: BP 118/64
[2019-02-18] MEDS: Tamsulosin 0.4mg cap ORAL SCH (21:02)
--- NOTE | 2019-02-18 21:28 | General Progress Note ---
Assessment/Plan Status: stable, progressing Assessment/Plan: Assessment - asymptomatic lipase elevation, doubt pancreatitis - anemia, OB (-) x 1 - Edema - b/l hydro per CT - renal failure - improved - loss of taste sensation Recommendation - po as tolerated - follow lipase - check B12 level - normal - outpatient EGD/Colon Subjective Allergies: Coded Allergies: No Known Allergies (Unverified , 02/15/19) Subjective above noted had CT scan --> b/l hydronephrosis, ? urolithiasis tolerating po no abd pain Objective Last 24 Hour Vital Signs Date Time Temp Pulse Resp B/P (MAP) Pulse Ox O2 Delivery O2 Flow Rate FiO2 02/18/19 16:00 98.6 86 16 99/64 (76) 97 02/18/19 12:00 97.8 85 17 119/64 (82) 97 02/18/19 09:00 Room Air 02/18/19 08:54 87 101/63 02/18/19 08:00 98.1 87 16 101/63 (76) 97 02/18/19 04:00 97.7 83 18 110/69 (83) 99 02/18/19 00:00 97.6 81 18 117/67 (84) 97 Intake and Output 02/17/19 02/18/19 19:00 07:00 Intake Total 1400 ml 1850 ml Output Total 1200 ml 4050 ml Balance 200 ml -2200 ml Intake Oral 300 ml 750 ml IV Total 1100 ml 1100 ml Output Urine Total 1200 ml 4050 ml Laboratory Tests 02/18/19 04:50: Lipase 808H 02/18/19 17:20: Sodium Level 139, Potassium Level 4.2, Chloride Level 105, Carbon Dioxide Level 24, Anion Gap 10, Blood Urea Nitrogen 32H, Creatinine 1.9H, Estimat Glomerular Filtration Rate , Glucose Level 104, Calcium Level 7.6L, Total Bilirubin 0.1L, Aspartate Amino Transf (AST/SGOT) 16, Alanine Aminotransferase (ALT/SGPT) 19, Alkaline Phosphatase 59, Total Protein 5.8L, Albumin 2.7L, Globulin 3.1, Albumin /Globulin Ratio 0.9L Height (Feet): 5 Height (Inches): 9.00 Weight (Pounds): 171 Objective WDWN WM NCAT supple CTA RR abd soft ND NT no edema Hilaria Sauer MD Feb 18, 2019 21:28
[2019-02-19] VITALS: BP 124/78
[2019-02-19 04:00] VITALS: BP 121/74
--- NOTE | 2019-02-19 07:25 | NUR ---
HAND-OFF: Report given to TYE Lay. Patient stable.
--- NOTE | 2019-02-19 07:30 | NUR ---
NURSE NOTES: Patient lying in bed awake. No complain of pain or distress at this time. Skin intact and dry. IV dressing in tact and dry. Michelle catheter patent and draining well. Bed lowest position. Call light within reach. Will continue to monitor.
[2019-02-19 07:38] LABS: ALANINE AMINOTRANSFERASE 20 U/L (12-78); ALBUMIN 2.4 G/DL (3.4-5.0); ALBUMIN/GLOBULIN RATIO 0.6 (1.0-2.7); ALKALINE PHOSPHATASE 53 U/L (46-116); ANION GAP 11 mmol/L (5-15); ASPARTATE AMINO TRANSFERASE 16 U/L (15-37); BILIRUBIN,TOTAL 0.2 MG/DL (0.2-1.0); BLOOD UREA NITROGEN 30 mg/dL (7-18); CALCIUM 7.9 MG/DL (8.5-10.1); CARBON DIOXIDE 23 MMOL/L (21-32); CHLORIDE 107 MMOL/L (98-107); CREATININE 1.7 MG/DL (0.55-1.30); POTASSIUM 3.6 MMOL/L (3.5-5.1); SODIUM 141 MMOL/L (136-145)
[2019-02-19 08:51] VITALS: BP 110/65
[2019-02-19] MEDS: Docusate 250mg cap ORAL SCH (09:00)
--- NOTE | 2019-02-19 09:20 | General Progress Note ---
Assessment/Plan Problem List: (1) Elevated lipase ICD Codes: R74.8 - Abnormal levels of other serum enzymes SNOMED: 554321863 (2) Urinary retention ICD Codes: R33.9 - Retention of urine, unspecified SNOMED: 452634290 (3) Acute renal failure ICD Codes: N17.9 - Acute kidney failure, unspecified SNOMED: 25681196 Qualifiers: Qualified Codes: N17.9 - Acute kidney failure, unspecified Status: stable, progressing Assessment/Plan: ivf monitor labs and renal fxn gi noted, bowel regime Subjective ROS Limited/Unobtainable: No Constitutional: Reports: malaise, weakness HEENT: Reports: no symptoms Cardiovascular: Reports: no symptoms Respiratory: Reports: no symptoms Gastrointestinal/Abdominal: Reports: no symptoms Genitourinary: Reports: no symptoms Neurologic/Psychiatric: Reports: no symptoms Endocrine: Reports: no symptoms Hematologic/Lymphatic: Reports: no symptoms Allergies: Coded Allergies: No Known Allergies (Unverified , 02/15/19) All Systems: reviewed and negative except above Subjective c/o constipation. on ivf. labs improving Objective Last 24 Hour Vital Signs Date Time Temp Pulse Resp B/P (MAP) Pulse Ox O2 Delivery O2 Flow Rate FiO2 02/19/19 09:15 95 110/65 02/19/19 08:51 97.7 95 18 110/65 (80) 99 02/19/19 04:00 97.7 80 18 121/74 (90) 99 02/19/19 00:00 97.9 78 18 124/78 (93) 97 02/18/19 21:00 Room Air 02/18/19 20:00 97.8 90 17 118/64 (82) 97 02/18/19 16:00 98.6 86 16 99/64 (76) 97 02/18/19 12:00 97.8 85 17 119/64 (82) 97 Intake and Output 02/18/19 02/19/19 19:00 07:00 Intake Total 480 ml 1450 ml Output Total 3100 ml Balance 480 ml -1650 ml Intake Oral 480 ml 450 ml IV Total 1000 ml Output Urine Total 3100 ml Laboratory Tests 02/18/19 17:20: Sodium Level 139, Potassium Level 4.2, Chloride Level 105, Carbon Dioxide Level 24, Anion Gap 10, Blood Urea Nitrogen 32H, Creatinine 1.9H, Estimat Glomerular Filtration Rate , Glucose Level 104, Calcium Level 7.6L, Total Bilirubin 0.1L, Aspartate Amino Transf (AST/SGOT) 16, Alanine Aminotransferase (ALT/SGPT) 19, Alkaline Phosphatase 59, Total Protein 5.8L, Albumin 2.7L, Globulin 3.1, Albumin /Globulin Ratio 0.9L 02/19/19 04:45: Sodium Level 141, Potassium Level 3.6, Chloride Level 107, Carbon Dioxide Level 23, Anion Gap 11, Blood Urea Nitrogen 30H, Creatinine 1.7H, Estimat Glomerular Filtration Rate , Glucose Level 93, Calcium Level 7.9L, Total Bilirubin 0.2, Aspartate Amino Transf (AST/SGOT) 16, Alanine Aminotransferase (ALT/SGPT) 20, Alkaline Phosphatase 53, Total Protein 6.1L, Albumin 2.4L, Globulin 3.7, Albumin /Globulin Ratio 0.6L Height (Feet): 5 Height (Inches): 9.00 Weight (Pounds): 171 Objective General Appearance: WD/WN, alert Neck: supple Cardiovascular: normal rate Respiratory/Chest: chest wall non-tender, lungs clear, normal breath sounds Abdomen: normal bowel sounds, non tender, soft, no mass 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
[2019-02-19 12:00] VITALS: BP 117/66
[2019-02-19 16:00] VITALS: BP 116/72
--- NOTE | 2019-02-19 16:04 | General Progress Note ---
Assessment/Plan Status: stable, progressing Assessment/Plan: Assessment - asymptomatic lipase elevation, doubt pancreatitis - anemia, OB (-) x 1 - Edema - b/l hydro per CT - renal failure - improved - loss of taste sensation Recommendation - po as tolerated - follow lipase - check B12 level - normal - outpatient EGD/Colon Subjective Allergies: Coded Allergies: No Known Allergies (Unverified , 02/15/19) Subjective above noted tolerating po no abd pain Objective Last 24 Hour Vital Signs Date Time Temp Pulse Resp B/P (MAP) Pulse Ox O2 Delivery O2 Flow Rate FiO2 02/19/19 12:00 97.9 80 20 117/66 (83) 98 02/19/19 09:15 95 110/65 02/19/19 09:00 Room Air 02/19/19 08:51 97.7 95 18 110/65 (80) 99 02/19/19 04:00 97.7 80 18 121/74 (90) 99 02/19/19 00:00 97.9 78 18 124/78 (93) 97 02/18/19 21:00 Room Air 02/18/19 20:00 97.8 90 17 118/64 (82) 97 Intake and Output 02/18/19 02/19/19 19:00 07:00 Intake Total 480 ml 1450 ml Output Total 3100 ml Balance 480 ml -1650 ml Intake Oral 480 ml 450 ml IV Total 1000 ml Output Urine Total 3100 ml Laboratory Tests 02/18/19 17:20: Sodium Level 139, Potassium Level 4.2, Chloride Level 105, Carbon Dioxide Level 24, Anion Gap 10, Blood Urea Nitrogen 32H, Creatinine 1.9H, Estimat Glomerular Filtration Rate , Glucose Level 104, Calcium Level 7.6L, Total Bilirubin 0.1L, Aspartate Amino Transf (AST/SGOT) 16, Alanine Aminotransferase (ALT/SGPT) 19, Alkaline Phosphatase 59, Total Protein 5.8L, Albumin 2.7L, Globulin 3.1, Albumin /Globulin Ratio 0.9L 02/19/19 04:45: Sodium Level 141, Potassium Level 3.6, Chloride Level 107, Carbon Dioxide Level 23, Anion Gap 11, Blood Urea Nitrogen 30H, Creatinine 1.7H, Estimat Glomerular Filtration Rate , Glucose Level 93, Calcium Level 7.9L, Total Bilirubin 0.2, Aspartate Amino Transf (AST/SGOT) 16, Alanine Aminotransferase (ALT/SGPT) 20, Alkaline Phosphatase 53, Total Protein 6.1L, Albumin 2.4L, Globulin 3.7, Albumin /Globulin Ratio 0.6L Height (Feet): 5 Height (Inches): 9.00 Weight (Pounds): 171 Objective WDWN WM NCAT supple CTA RR abd soft ND NT no edema Hilaria Sauer MD Feb 19, 2019 16:04
--- NOTE | 2019-02-19 17:50 | NUR ---
NURSE NOTES: Spoke to regarding eye drop and new order received. Order read back and carried out.
[2019-02-19] MEDS ORDERED: Tetrahydrozoline 0.05% Opth 15ml BOTH EYES PRN (19:00)
--- NOTE | 2019-02-19 19:30 | NUR ---
HAND-OFF: Report given to Brittany GAMBLE. Patient in stable condition.
--- NOTE | 2019-02-19 19:35 | NUR ---
NURSE NOTES: Received report from TYE Lay. Patient in stable condition, no distress noted. Michelle catheter intact, patent draining clear yellow urine. IV site RFA, 22 gauge, intact, infusing 1/2 NS at 100 cc/hr. Denies pain. Bed in low position, call light within reach, will continue to monitor.
[2019-02-19 20:00] VITALS: BP 112/69
[2019-02-19] MEDS: Tamsulosin 0.4mg cap ORAL SCH (21:17)
[2019-02-20] VITALS: BP 114/66
[2019-02-20 04:00] VITALS: BP 126/71
--- NOTE | 2019-02-20 07:37 | NUR ---
NURSE NOTES:BEDSIDE ROUNDS WITH OUTGOING RN(PALOMO),PATIENT HAVING BREAKFAST,A/PX4,ROOM AIR,IV SITE INTACT,NO C/O PAIN.WILL CONTINUE PLAN OF CARE.
[2019-02-20 08:00] VITALS: BP 113/62
[2019-02-20] MEDS: Docusate 250mg cap ORAL SCH (08:10)
[2019-02-20 09:17] VITALS: BP 113/62
[2019-02-20 10:24] LABS: ALANINE AMINOTRANSFERASE 18 U/L (12-78); ALBUMIN 2.3 G/DL (3.4-5.0); ALBUMIN/GLOBULIN RATIO 0.6 (1.0-2.7); ALKALINE PHOSPHATASE 54 U/L (46-116); ANION GAP 9 mmol/L (5-15); ASPARTATE AMINO TRANSFERASE 20 U/L (15-37); BILIRUBIN,TOTAL 0.2 MG/DL (0.2-1.0); BLOOD UREA NITROGEN 23 mg/dL (7-18); CALCIUM 7.9 MG/DL (8.5-10.1); CARBON DIOXIDE 22 MMOL/L (21-32); CHLORIDE 107 MMOL/L (98-107); CREATININE 1.4 MG/DL (0.55-1.30); POTASSIUM 4.2 MMOL/L (3.5-5.1); SODIUM 137 MMOL/L (136-145)
--- NOTE | 2019-02-20 10:39 | General Progress Note ---
Assessment/Plan Status: stable, progressing Assessment/Plan: IMPRESSION: 1. Obstructive uropathy with acute renal failure. 2. Bilateral hydronephrosis. 3. Distended bladder. 4. Hypertension. 5. Vitamin D deficiency. PLAN care noted and reviewed tolentino on dc after dc renal follow up hydrate- december dc monitor d/w patient and plan to dc today if able with HH and proscar and flomax impression, plan, and exam edited and reviewed in detail care discussed with RN Subjective Allergies: Coded Allergies: No Known Allergies (Unverified , 02/15/19) Subjective care noted renal function better uro noted- ok to dc with tolentino Objective Last 24 Hour Vital Signs Date Time Temp Pulse Resp B/P (MAP) Pulse Ox O2 Delivery O2 Flow Rate FiO2 02/20/19 08:10 77 126/71 02/20/19 08:00 97.9 89 20 113/62 (79) 98 02/20/19 07:37 Room Air 02/20/19 04:00 97.9 77 16 126/71 (89) 99 02/20/19 00:00 97.9 78 17 114/66 (82) 98 02/19/19 21:00 Room Air 02/19/19 20:00 98.1 80 16 112/69 (83) 98 02/19/19 16:00 98.0 83 18 116/72 (87) 98 02/19/19 12:00 97.9 80 20 117/66 (83) 98 Intake and Output 02/19/19 02/20/19 19:00 07:00 Intake Total 400 ml 1340 ml Output Total 1500 ml 2500 ml Balance -1100 ml -1160 ml Intake Oral 300 ml 240 ml IV Total 100 ml 1100 ml Output Urine Total 1500 ml 2500 ml Laboratory Tests 02/20/19 09:00: Sodium Level 137, Potassium Level 4.2, Chloride Level 107, Carbon Dioxide Level 22, Anion Gap 9, Blood Urea Nitrogen 23H, Creatinine 1.4H, Estimat Glomerular Filtration Rate , Glucose Level 128H, Calcium Level 7.9L, Total Bilirubin 0.2, Aspartate Amino Transf (AST/SGOT) 20, Alanine Aminotransferase (ALT/SGPT) 18, Alkaline Phosphatase 54, Total Protein 6.0L, Albumin 2.3L, Globulin 3.7, Albumin /Globulin Ratio 0.6L Height (Feet): 5 Height (Inches): 9.00 Weight (Pounds): 171 Objective GENERAL: A well-developed male, comfortable at present. HEENT: Negative. Extraocular movements are grossly intact. NECK: Supple. LUNGS: Fairly clear and symmetric. No rhonchi or wheezes. CARDIAC: S1 and S2. Regular rate and rhythm without murmurs, rubs, or gallops. ABDOMEN: Soft, nontender, and nondistended. EXTREMITIES: No cyanosis or clubbing. no edema NEUROLOGIC: Grossly nonfocal. tolentino in place Bj Giron MD Feb 20, 2019 10:39
--- NOTE | 2019-02-20 10:46 | NUR ---
[facility] [employer] NOTES CLINICALS FAXED TO [facility]. SEGURA TO [facility]URWINDER PATIENT. Addendum: 02/20/19 at 1735 by Elyse Andino CM [facility] LEFT TO VERIFY [facility] CAN ACCEPT THIS PT
--- NOTE | 2019-02-20 11:28 | General Progress Note ---
Assessment/Plan Status: stable, progressing Assessment/Plan: Assessment - asymptomatic lipase elevation, doubt pancreatitis - anemia, OB (-) x 1 - Edema - b/l hydro per CT - renal failure - improved - loss of taste sensation Recommendation - po as tolerated - follow lipase - check B12 level - normal - outpatient EGD/Colon Subjective Allergies: Coded Allergies: No Known Allergies (Unverified , 02/15/19) Subjective above noted tolerating po no abd pain (+) BM yesterday Objective Last 24 Hour Vital Signs Date Time Temp Pulse Resp B/P (MAP) Pulse Ox O2 Delivery O2 Flow Rate FiO2 02/20/19 08:10 77 126/71 02/20/19 08:00 97.9 89 20 113/62 (79) 98 02/20/19 07:37 Room Air 02/20/19 04:00 97.9 77 16 126/71 (89) 99 02/20/19 00:00 97.9 78 17 114/66 (82) 98 02/19/19 21:00 Room Air 02/19/19 20:00 98.1 80 16 112/69 (83) 98 02/19/19 16:00 98.0 83 18 116/72 (87) 98 02/19/19 12:00 97.9 80 20 117/66 (83) 98 Intake and Output 02/19/19 02/20/19 19:00 07:00 Intake Total 400 ml 1340 ml Output Total 1500 ml 2500 ml Balance -1100 ml -1160 ml Intake Oral 300 ml 240 ml IV Total 100 ml 1100 ml Output Urine Total 1500 ml 2500 ml Laboratory Tests 02/20/19 09:00: Sodium Level 137, Potassium Level 4.2, Chloride Level 107, Carbon Dioxide Level 22, Anion Gap 9, Blood Urea Nitrogen 23H, Creatinine 1.4H, Estimat Glomerular Filtration Rate , Glucose Level 128H, Calcium Level 7.9L, Total Bilirubin 0.2, Aspartate Amino Transf (AST/SGOT) 20, Alanine Aminotransferase (ALT/SGPT) 18, Alkaline Phosphatase 54, Total Protein 6.0L, Albumin 2.3L, Globulin 3.7, Albumin /Globulin Ratio 0.6L Height (Feet): 5 Height (Inches): 9.00 Weight (Pounds): 171 Objective WDWN WM NCAT supple CTA RR abd soft ND NT no edema Hilaria Sauer MD Feb 20, 2019 11:28
[2019-02-20 12:00] VITALS: BP 107/65
--- NOTE | 2019-02-20 14:00 | NUR ---
NURSE NOTES:RECEIVED FR.PACU BY BED S/P RIGHT RADICAL MODIFIED MASTECTOMY UNDER GENERAL ANESTHESIA,A/OX4,WITH 2LITERS N/C,MOVING ALL EXTREMITIES SPONTANEOUSLY,NO C/O PAIN,SURGICAL DRESSING C/D/I.WITH 2 JPS COMPRESSED AND WITH S/S DRAINAGE.IV SITE INTACT.PLAN OF CARE DISCUSSED AND UNDERSTOOD. Addendum: 02/20/19 at 1423 by SHANTELLE MONTEZ RN NURSE NOTES:ABOVE NOTES ADRRESED FOR ANOTHER PATIENT
--- NOTE | 2019-02-20 15:12 | NUR ---
NURSE NOTES:D/C INSTRUCTIONS INCLUDING CARE OF YATES CATH, TO HOW TO EMPTY,RECORD AND USE OF LEG BAG.WITH RETURN DEMO FR.PATIENT AND 2 SISTERS.STABLE ON DISCHARGE.BY PRIVATE VEHICLE.
[2019-02-20] MEDS ORDERED: 1/2 NS 1000ml IV ONE (15:51)
--- NOTE | 2019-02-21 12:42 | Discharge Summary ---
Discharge Summary Discharge Summary _ DATE OF ADMISSION: 02/15/2019 DATE OF DISCHARGE: 02/20/2019 DISCHARGED BY: Dr. Giron REASON FOR ADMISSION: 73 years old male with past medical history of hypertension, hypothyroidism, GERD, cognitive dysfunction, history of lower extremity edema, was seen in the office with worsening lower extremity edema and difficulty with urinary output. Patient was noted to have acute renal failure and was asked to come to emergency room for admission and further work-up and management. Patient had a Michelle catheter placed with significant amount of urinary retention - 1500 mL. Patient denied abdominal pain. Laboratory work-up revealed mild leukocytosis WBC 11, hemoglobin 10.2, hematocrit 21.6. Evidence of renal failure with BUN 81, creatinine 4.7. Sodium 133. CO2 19. Troponin negative. Stable LFT. Lipase 1231. Urinalysis revealed no evidence of UTI. Patient subsequently admitted for further management for renal failure and urinary retention . CONSULTANTS: GI specialist Dr. Sauer [facility] COURSE: Patient admitted, IV hydration continued. Renal ultrasound revealed moderate bilateral hydronephrosis. CT of the abdomen and pelvis demonstrated moderate to severe bilateral hydronephrosis with thickened uroepithelium and periureteral and perinephric stranding, suggestive of chronic inflammation. The findings were probably associated with thickening of the wall of the urinary bladder, moderate degree. 3 mm calcifications in the left lower quadrant abdomen. This is the approximate location of the mid left ureter although the calcium is favored to represent arterial calcification rather than ureteral stone. Urologist seen and evaluated patient Per urologist, patient had evidence of acute renal failure in setting of urinary retention. The picture was consistent with obstructive uropathy. After catheter drainage , creatinine improved from 4.7 down to 2. Per urologist, patient had a massive urinary retention with 1.5 L drained after catheter placement. Diagnostic imaging also revealed evidence of urinary retention, bilateral hydroureteronephrosis. It was unclear at this time if it was secondary to prostate or neurogenic bladder. Urologist recommended to continue catheter. Once creatinine returns to normal , Michelle catheter can be removed to check if patient can urinate without the aid and if he improved on the prostate medications. Creatinine from 4.7 down to 1.4, and BUN from 81 down to 23. Proscar and Flomax were continued. GI Specialist followed. Patient had asymptomatic lipase elevation , but no complaint of abdominal pain. Lipase trending down . GI specialist doubted pancreatitis. Patient noted to be anemic . Anemia work-up revealed evidence of anemia of chronic disease. Stool for occult blood was negative. B12 level stable. GI specialist recommended outpatient EGD and colonoscopy. Bowel regimen instituted. Vitamin D continued. Blood pressure was managed with calcium channel alana , and remained stable. Synthroid continued. Supportive care provided. Home health services were arranged. Patient was cleared for discharge home with Michelle catheter on Proscar and Flomax. Outpatient follow-up with ENT specialist Outpatient follow-up with GI specialist for outpatient GI procedure. FINAL DIAGNOSES: Obstructive uropathy with acute renal failure Bilateral hydronephrosis Urinary retention Hypertension Vitamin D deficiency Anemia Asymptomatic lipase elevation DISCHARGE MEDICATIONS: See Medication Reconciliation list. DISCHARGE INSTRUCTIONS: Patient was discharged home with home health services. Follow up with primary care provider in one week. I have been assigned to dictate discharge summary for this account. I was not involved in the patient's management. Laly Gannon NP Feb 21, 2019 12:42
[2019-02-22] MEDS ORDERED: Vitamin D 50,000 units cap ORAL SCH (09:00)
== END 2019-02-20 15:12 | disposition home health service (06) | DRG 684 ==
LOC: EMR 15:48 → 3E 15:53 → EDBEDREQ 16:28
DX: N17.9 Acute kidney failure, unspecified (principal); N13.1 Hydronephrosis with ureteral stricture, not elsewhere classified; D64.9 Anemia, unspecified; I10 Essential (primary) hypertension; E03.9 Hypothyroidism, unspecified; K21.9 Gastro-esophageal reflux disease without esophagitis; N13.30 Unspecified hydronephrosis; E55.9 Vitamin D deficiency, unspecified; R33.9 Retention of urine, unspecified; F03.90 Unspecified dementia, unspecified severity, without behavioral disturbance, psychotic disturbance, mood disturbance, and anxiety; R60.9 Edema, unspecified; R74.8 Abnormal levels of other serum enzymes
CPT/HCPCS: 36415; 71045; 74176; 76770; 80048; 80053; 81003; 82270; 82550; 82570; 82607; 82728; 83540; 83550; 83690; 84300; 84484; 85025; 85610; 85730; 93005; 99285